=== PATIENT | female | born 1980 | race Caucasian/White ===

== ENCOUNTER 2023-03-11 05:04 | Emergency (ER) | payer OTHER, SELFPAY ==
[2023-03-11 05:06] VITALS: BP 136/94
[2023-03-11 05:18] VITALS: BP 128/92
--- NOTE | 2023-03-11 05:35 | ED.GENMED ---
History of Present Illness
<DANETTE Julian - Last Filed: 03/11/23 06:53>
General
Chief Complaint: Head Injury
Source: patient and significant other
Exam Limitations: none
Time Seen by Provider: 03/11/23 05:13
Nursing documentation reviewed up to this point in time: agreed with
Travel History
Have you had any contact with someone who has COVID-19?: No
Do you have any symptoms of coronavirus? Fever > 100 degrees, chills, cough, shortness of breath, sore throat, loss of taste or smell, muscle aches, or headache?: No
History of Present Illness
History of Present Illness:
Pt is a 42 yo female with no significant PMH who presents today following a syncopal episode which resulted in a head laceration. Pt states that she woke up at 4:11 am with a right lower leg cramp, sat on edge of bed then stood up trying to get rid
of the cramp. She then walked to the bathroom and began to feel warm, lightheaded, and pre-syncopal. Episode resolved. Episode began again as she stood at the sink so she sat down until it resolved. Then she walked towards the fan to turn it on and
does not remember making it to the fan. Syncope occurred from standing height, pt hit her head on an unknown object and awoke slowly about 1 minute later to her who then drove her to the ED. Currently, she is experiencing disequilibrium,
slight nausea, and throbbing at the site of laceration on the right side of her forehead. Denies chest pain, SOB, pain in shoulders or neck, vomiting. Pt does not take anticoagulants and does not recall when her last tetanus vaccination was but
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 States that her last syncopal episode was in 2007 when it was hot outside and she had not eaten. Denies history of cardiac, respiratory, or neurological problems.
Past History
<DANETTE Julian - Last Filed: 03/11/23 06:53>
Past History
ED Past Medical History: None
ED Past Surgical History: Appendectomy
Social History
Tobacco: Non-smoker
Alcohol: Occasional
Drug: None
Personal:
Living: with family
Review of Systems
<DANETTE Julian - Last Filed: 03/11/23 06:53>
Review of Systems
Allergies reviewed?: Yes
Other source history: family
All Other Systems: ROS reviewed and negative except as documented in HPI and ROS
Phy Exam
<DANETTE Julian - Last Filed: 03/11/23 06:53>
General Physical Exam
General Presentation: well appearing and no apparent distress
General age: appears stated age
General Skin: warm and dry
General Mental: alert
General Hydration: appears well hydrated
ENT Exam
ENT Exam: TM's normal, pharynx normal, neck supple, normocephalic, lymphnodes and swallowing well
Additional ENT: laceration on right side of forehead, 1 cm clean flap with no skin loss
Eye Exam
Eye Exam: PERRL, EOMI and conjunctiva normal
Cardiovascular Exam
Cardiovascular Exam: regular rate/rhythm, no edema, no gallop, no murmur and normal peripheral pulses
Pulmonary Exam
Pulmonary Exam: lungs clear, no respiratory distress, no rales, no crackles, no rhonchi, no wheezing and no cough
Gastrointestinal Exam
Gastrointestinal Exam: normal bowel sounds, non tender, soft and non distended
Neurological Exam
Neurological Exam: alert, oriented x3, CN II-XII intact, no motor deficits and speech normal
Musculoskeletal Exam
Musculoskeletal Exam: full ROM
Skin Exam
Skin Exam: normal color and warm/dry
Psychiatric Exam
Psychiatric Exam: normal mood/affect
Course
<DANETTE Julian - Last Filed: 03/11/23 06:53>
Orders/Labs/Results
Orders:
Orders
03/11/23 05:15
Electrocardiogram (*1) Urgent
Reason for Study: Syncope
Head wo Contrast CT [CT Head W/o Iv Contrast] Urgent
Comment:
Reason For Exam: head injury
EKG- Treatment ONCE
03/11/23 05:16
Test Result ONCE
03/11/23 05:27
CMP [Comprehensive Metabolic Panel] Urgent
Complete Blood Count/No Diff Urgent
HCG, Serum Qualitative Screen Urgent
Troponin I Urgent
Abnormal Lab Results
03/11/23
05:27
Glucose 100 H mg/dl
(70-99)
03/11/23 05:27
03/11/23 05:27
Vital Signs
Initial and Last Documented VS:
Initial Vital Signs
Temp Pulse Resp BP Pulse Ox
98.1 F 134 18 136/94 98
03/11/23 05:06 03/11/23 05:06 03/11/23 05:06 03/11/23 05:06 03/11/23 05:06
Last Documented Vital Signs
Temp Pulse Resp BP Pulse Ox
98.1 F 134 18 136/94 98
03/11/23 05:06 03/11/23 05:06 03/11/23 05:06 03/11/23 05:06 03/11/23 05:06
<Tang Aburto, DO - Last Filed: 03/11/23 06:53>
Orders/Labs/Results
Orders:
Orders
03/11/23 05:15
Electrocardiogram (*1) Urgent
Reason for Study: Syncope
Head wo Contrast CT [CT Head W/o Iv Contrast] Urgent
Comment:
Reason For Exam: head injury
EKG- Treatment ONCE
03/11/23 05:16
Test Result ONCE
03/11/23 05:27
CMP [Comprehensive Metabolic Panel] Urgent
Complete Blood Count/No Diff Urgent
HCG, Serum Qualitative Screen Urgent
Troponin I Urgent
Abnormal Lab Results
03/11/23
05:27
Glucose 100 H mg/dl
(70-99)
03/11/23 05:27
03/11/23 05:27
Vital Signs
Initial and Last Documented VS:
Initial Vital Signs
Temp Pulse Resp BP Pulse Ox
98.1 F 134 18 136/94 98
03/11/23 05:06 03/11/23 05:06 03/11/23 05:06 03/11/23 05:06 03/11/23 05:06
Last Documented Vital Signs
Temp Pulse Resp BP Pulse Ox
98.1 F 134 18 136/94 98
03/11/23 05:06 03/11/23 05:06 03/11/23 05:06 03/11/23 05:06 03/11/23 05:06
<DANETTE Julian - Last Filed: 03/11/23 06:53>
MDM/Problems Addressed
Differential Diagnosis Includes:
vasovagal syncope, arrhythmia, concussion, epidural hematoma
MDM/Problems Addressed:
Pt is a 42 yo female with no significant PMH who presents following a syncopal episode causing a laceration on the right side of her forehead.
<DANETTE Julian - Last Filed: 03/11/23 06:53>
*Critical Care Note
Total Time (30-74mins, 75-104mins- exclusive of procedures): Not Applicable
<Tang Aburto DO - Last Filed: 03/11/23 06:53>
Update Note
Update Note:
CT head without intravenous contrast
IMPRESSION:
No hemorrhage or other acute intracranial abnormality.
Finalized at 6:10 AM EST
ED Attending Note
<DANETTE Julian - Last Filed: 03/11/23 06:53>
-
Portions of this chart may have been created with voice recognition software.� Occasional wrong word or��sound alike� substitutions may have occurred due to the inherent limitations of voice recognition software.
<Tang Aburto DO - Last Filed: 03/11/23 06:53>
ED Attending Note
Patient seen and examined by attending physician: Yes
I performed the substantive portion of visit, reviewed & personally made and approve the management plan that is documented in note by myself or LUCI.: Yes
ED Attending Note:
Pleasant 39-year-old female presents with a syncopal episode. She fell and struck her head. She states that she awakened having her lower leg. She has had cramps in the past. She sat on the edge of the bed trying to work the cramp out. She
walked to the bathroom and felt lightheaded and lost sensation temporary resolved. She then walked out of the bathroom felt lightheaded again and then passed out. She struck her head. Her states that she was passed out for less than.
Upon arrival to the emergency department she states that she felt better. She is not on anticoagulation. 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 Patient has had syncopal episodes in the past. Patient was seen in conjunction
with the PA student. I have reviewed and agree with the history and treatment plan presented. On my independent physical exam, patient is awake, alert, and oriented x3. Heart is regular rate rhythm. Lungs are clear to auscultation bilateral
without wheezes rales or rhonchi moves all 4 extremities. Cerebellar function is intact. She does have a small triangular flap laceration to the right forehead approximately 1 cm in each arm of the laceration for a total of 2 cm.
Procedure note: Wound was thoroughly cleaned. No evidence of foreign body present. The flap was reapproximated. Dermabond was used to approximate the wound. There was good approximation. Patient tolerated procedure well with no immediate
adverse effects. Patient to be discharged home
Discharge Plan
Departure
Patient Disposition: Home (Routine Discharge)
Date of Disposition: 03/11/23
Time of Disposition: 06:47
Patient with high blood pressure during this ER visit?: Yes
Condition: Good
Covid-19: Not Applicable
Discharge Problem:
Syncope, Laceration of head
Instructions: Laceration Repair With Glue (DC), Syncope (Fainting) (DC), BLOOD PRESSURE
Prescriptions:
No Action
prenat.vits,matt,[id number] [ Vitamin] 1 TAB tablet
1 tab PO DAILY
acetaminophen-codeine 1 TABLET tablet
1 tab PO Q4HPRN PRN (Reason: severe pain) Qty: 30 0RF
ibuprofen 600 MG tablet
600 mg PO Q6HPRN PRN (Reason: moderate pain/cramps) Qty: 30 0RF
Referrals:
[facility] [Provider Group] - As needed
Reginaldo Salamanca MD [Family Provider] - Follow up in 2-3 days (For wound check and to confirm that you have a current tetanus shot)
Activity Restrictions/Additional Instructions:
Refer to wound care instructions for information on how to care for your forehead laceration.
Return if wound begins to show signs of infection, including fever, surrounding redness, or drainage of pus. Return if head symptoms worsen such as severe headache, blurry vision, palpitations, chest pain, or loss of consciousness.
Please follow-up with your family doctor to ensure your tetanus shot is up-to-date.
It was a pleasure meeting you and taking part in your care. We hope for your continued healing and wellness.
Please read discharge instructions in their entirety. However, they are for general education and may not describe your exact diagnosis at discharge. Information on your ER visit and medical conditions were discussed with you along with appropriate
follow up information...
Please schedule a follow up appointment as directed. Call to schedule an appointment
Please return to the emergency department with ANY change in, persisting, or worsening of symptoms. If any of your symptoms do not improve, or persist, or become more severe within 6-12 hours, please return to the emergency department for further
care.
Please return to the emergency department if you develop a headache, neck pain/stiffness, fever greater than 100.4F, chest pain, shortness of breath, persistent nausea, vomiting, slurred speech, difficulty walking, numbness/tingling, weakness, signs
of infection or any other symptoms that are worrisome to you.
If you have any questions or concerns please do not hesitate to call the Hospital at or E-mail me directly at [email or web address]
Interventions
Interventions:
*Risk Screen - Suicide Last Done: 03/11/23 05:06
*General Assessment Last Done: 03/11/23 05:14
*Neglect/Abuse Screening Last Done: 03/11/23 05:06
ED- Fall Risk Assessment Last Done: 03/11/23 05:14
*ED COVID-19 Vaccine History Last Done: 03/11/23 05:14
ED- Cardiac Assessment Last Done: 03/11/23 05:14
ED- Neurological Assessment Last Done: 03/11/23 05:14
ED-Skin Assessment Last Done: 03/11/23 05:14
[2023-03-11 05:40] LABS: Hematocrit 39.9 % (37.0-47.0); Hemoglobin 13.6 g/dL (12.0-16.0); Mean Corp Hgb Conc. 34.1 g/dL (33.0-37.0); Mean Corpuscular Hgb 29.6 pg (27.0-31.0); Mean Corpuscular Volume 86.7 fL (81.0-99.0); Platelet Count 316 10^3/uL (130-400); Red Cell Dist. Width 12.1 % (11.5-14.5); White Blood Cell Count 9.6 10^3/uL (4.8-10.8)
[2023-03-11 06:03] LABS: Troponin I < 0.012 ng/ml
[2023-03-11 06:04] LABS: ALT (SGPT) 14 U/L (0-35); AST (SGOT) 20 U/L (14-36); Albumin 4.4 g/dl (3.5-5.0); Alkaline Phosphatase 70 U/L (38-126); Blood Urea Nitrogen 13 mg/dl (7-17); Calcium 9.5 mg/dl (8.4-10.2); Carbon Dioxide 23 mmol/L (22-30); Chloride 107 mmol/L (98-107); Glucose 100 mg/dl (70-99); Potassium 4.1 mmol/L (3.5-5.1); Sodium 137 mmol/L (135-145); Total Bilirubin 0.8 mg/dl (0.2-1.3); Total Protein 7.8 g/dl (6.3-8.2); eGFR > 60.00
[2023-03-11 06:14] LABS: HCG, Serum Qualitative Screen Negative
[2023-03-11 07:15] VITALS: BP 120/84
[2023-03-11 07:30] VITALS: BP 125/84
[2023-03-11 08:00] VITALS: BP 129/85
== END 2023-03-11 08:05 | disposition home or self-care (01) ==
LOC: EMR 05:04
PROVIDERS: EMERGENCY PHYSICIAN Student in an Organized Health Care Education/Training Program; FAMILY PHYSICIAN Internal Medicine
DX: R55 Syncope and collapse (principal); S01.81XA Laceration without foreign body of other part of head, initial encounter; W19.XXXA Unspecified fall, initial encounter
CPT/HCPCS: 99284; 12001; 70450; 80053; 84484; 84703; 85027; 93005

== ENCOUNTER → 2023-05-12 12:54 | Outpatient (REF) | payer OTHER, SELFPAY | LOC: DHCBC MAIN 12:54 | PROVIDERS: ATTENDING PHYSICIAN Internal Medicine Cardiovascular Disease; FAMILY PHYSICIAN Internal Medicine | DX: R42 Dizziness and giddiness (principal); R00.2 Palpitations | CPT/HCPCS: 93306 ==